=== PATIENT | male | born 1980 ===

== ENCOUNTER 2021-08-31 13:02 | Emergency (ER) | payer MEDICAID ==
[2021-08-31] MEDS ORDERED: Glucagon,Human Recombinant 1 MG Vial IM PRN (13:35)
[2021-08-31] MEDS ORDERED: 50% Dextrose in Water 50 ML Syringe IVPUSH PRN (13:35)
[2021-08-31] MEDS ORDERED: Zolpidem 5 MG Tab ONE (14:00)
[2021-08-31] MEDS: Acetaminophen/oxyCODONE 325-5 MG Tab PO PRN (14:00)
[2021-08-31] MEDS: Insulin Glargine,Human Rec. Analog 100 Units/ML 3 ML Pen SUBCUT SCH (14:00)
[2021-08-31] MEDS: Zolpidem 5 MG Tab PO ONE (14:00)
[2021-08-31] MEDS: FLUoxetine 10 MG Cap PO ONE (14:00)
[2021-08-31] MEDS: Lisinopril 10 MG Tab PO ONE (14:20)
== END 2021-08-31 14:10 | disposition home or self-care (01) ==
LOC: LB.ED 13:02
DX: E11.9 Type 2 diabetes mellitus without complications (principal); Z51.81 Encounter for therapeutic drug level monitoring
CPT/HCPCS: 82947; 99282; A9270-GY